=== PATIENT | male | born 1995 | race Caucasian/White ===

== ENCOUNTER 2017-03-29 11:15 | Emergency (ER) | payer OTHER ==
[2017-03-29] MEDS ORDERED: OXYCODONE-ACETAMINOPHEN 5-325 MG TABLET PO ONE (11:44)
--- NOTE | 2017-03-29 11:46 | ER Document Report ---
HPI - HPI Patient complains to provider of: left foot injury Onset: Last week Onset/Duration: Persistent Quality of pain: Achy Pain Level: 5 Context: Patient states that a trailer that was holding a heavy load fell on his left foot while he was wearing steel toe shoes 6 days ago. Patient complains of continued left foot pain and swelling. Associated Symptoms: Other - Left foot injury Exacerbated by: Standing, Movement, Walking Relieved by: Denies Similar symptoms previously: No Recently seen / treated by doctor: No - ROS ROS below otherwise negative: Yes Systems Reviewed and Negative: Yes All other systems reviewed and negative - MUSCULOSKELETAL Musculoskeletal: REPORTS: Extremity pain, Swelling - DERM Skin Color: Normal Past Medical History - General Information source: Patient, Parent - Social History Smoking Status: Current Every Day Smoker Frequency of alcohol use: None Drug Abuse: None Occupation: cable maintainer Lives with: Family Family History: Reviewed & Not Pertinent Patient has suicidal ideation: No Patient has homicidal ideation: No - Medical History Medical History: Negative Renal/ Medical History: Denies: Hx Peritoneal Dialysis Psychiatric Medical History: Reports: Hx Depression Surgical Hx: Negative - Immunizations Hx Diphtheria, Pertussis, Tetanus Vaccination: Yes Vertical Provider Document - CONSTITUTIONAL Agree With Documented VS: Yes Exam Limitations: No Limitations General Appearance: WD/WN, No Apparent Distress - INFECTION CONTROL TRAVEL OUTSIDE OF THE [place] IN LAST 30 DAYS: No - HEENT HEENT: Atraumatic, Normocephalic - NECK Neck: Normal Inspection - RESPIRATORY Respiratory: No Respiratory Distress O2 Sat by Pulse Oximetry: 97 - CARDIOVASCULAR Pulses: Normal: Dorsalis pedis - MUSCULOSKELETAL/EXTREMETIES Musculoskeletal/Extremeties: MAEW, Tender - left midfoot tenderness, left medial malleolar tenderness, Edema - 2 +edema - NEURO Level of Consciousness: Awake, Alert, Appropriate Motor/Sensory: No Motor Deficit - DERM Integumentary: Warm, Dry, No Rash Course - Vital Signs Vital signs: Temp Pulse Resp BP Pulse Ox 98.6 F 91 H 20 133/72 H 97 03/29/17 11:28 03/29/17 11:28 03/29/17 11:28 03/29/17 11:28 03/29/17 11:28 - Diagnostic Test Radiology reviewed: Reports reviewed Procedures - Immobilization Left Foot Pre-Proc Neuro Vasc Exam: Normal Immobilizer type: Posterior ankle Performed by: PCT Post-Proc Neuro Vasc Exam: Normal Alignment checked and good: Yes Discharge - Discharge Clinical Impression: Crush injury Sprain of foot, left Qualifiers: Encounter type: initial encounter Qualified Code(s): S93.602A - Unspecified sprain of left foot, initial encounter Condition: Stable Disposition: HOME, SELF-CARE Instructions: Sprain ([facility]), Ice Packs ([facility]), Oral Narcotic Medication ([facility]), Crush Injury ([facility]), Splint Precautions ([facility]), Use of Crutches ([facility]) Additional Instructions: Return immediately for any new or worsening symptoms Followup with your primary care provider, call tomorrow to make a followup appointment Follow Up with orthopedic doctor, call Friday for an appointment. Prescriptions: Ibuprofen [Motrin 800 mg Tablet] 800 mg PO Q8H PRN #21 tab PRN Reason: Oxycodone HCl/Acetaminophen [Percocet 5-325 mg Tablet] 1 - 2 tab PO ASDIR PRN # 15 tablet PRN Reason: Forms: Return to Work Referrals: [facility] ([facility]) [Provider Group] - 03/31/17
--- NOTE | 2017-03-29 12:38 | RADIOLOGY REPORT (SQ) ---
EXAM DESCRIPTION: ANKLE LEFT COMPLETE COMPLETED DATE/TIME: 03/29/2017 12:16 pm REASON FOR STUDY: crush injury COMPARISON: None. NUMBER OF VIEWS: Three views. TECHNIQUE: AP, lateral, and oblique radiographic images acquired of the left ankle. LIMITATIONS: None. FINDINGS: MINERALIZATION: Normal. BONES: No acute fracture or dislocation. No worrisome bone lesions. JOINTS: Small tibiotalar joint effusion SOFT TISSUES: Diffuse medial and lateral malleolar soft tissue swelling. No foreign body. OTHER: No other significant finding. IMPRESSION: Soft tissue swelling and ankle joint effusion. No displaced acute fracture or disruptio n of the ankle mortise TECHNICAL DOCUMENTATION: JOB ID: [id number] [employer]- All Rights Reserved
--- NOTE | 2017-03-29 12:40 | RADIOLOGY REPORT (SQ) ---
EXAM DESCRIPTION: FOOT LEFT COMPLETE COMPLETED DATE/TIME: 03/29/2017 12:16 pm REASON FOR STUDY: crush injury COMPARISON: Left ankle same date NUMBER OF VIEWS: Three views. TECHNIQUE: AP, lateral and oblique radiographic images acquired of the left foot. LIMITATIONS: None. FINDINGS: MINERALIZATION: Normal. BONES: No acute fracture or dislocation. No worrisome bone lesions. JOINTS: No effusions. SOFT TISSUES: Diffuse forefoot soft tissue swelling. No foreign body. OTHER: No other significant finding. IMPRESSION: Forefoot soft tissue swelling. No fracture TECHNICAL DOCUMENTATION: JOB ID: [id number] [employer]- All Rights Reserved
[2017-03-29 13:29] VITALS: BP 128/76
== END 2017-03-29 13:30 | disposition home or self-care (01) ==
LOC: ER 11:15
PROC: 2W3TX1Z Immobilization of Left Foot using Splint (ICD-10-PCS; principal; 2017-03-29)
DX: S93.602A Unspecified sprain of left foot, initial encounter (principal); W22.8XXA Striking against or struck by other objects, initial encounter; F17.200 Nicotine dependence, unspecified, uncomplicated
CPT/HCPCS: 99283